=== PATIENT | female | born 1970 | race Hispanic/Latino ===

== ENCOUNTER 2018-08-13 07:44 | Observation (INO) | payer BC ==
[~2018-08-13] VITALS: Ht 157.5 cm; Wt 83.6 kg
[2018-08-13] MEDS ORDERED: LABETALOL HCL 5 MG/ML 20ML VIAL IV STA ×2 (07:59→10:05)
[2018-08-13] MEDS ORDERED: ONDANSETRON HCL INJ 2 MG/ML VIAL IV PRN (09:45)
[2018-08-13] MEDS ORDERED: MORPHINE SULFATE 2 MG/ML SYR IV PRN (09:45)
[2018-08-13] MEDS ORDERED: SODIUM CHLORIDE FLUSH 10 ML SYR INJ PRN (09:45)
[2018-08-13] MEDS ORDERED: HYDRALAZINE HCL 20 MG/ML VIAL IV PRN ×2 (10:00→18:00)
[2018-08-13] MEDS ORDERED: HYDRALAZINE HCL 25 MG TAB PO ONE (10:15)
[2018-08-13] MEDS ORDERED: POTASSIUM CHLORIDE 10MEQ EA PO ONE (13:30)
[2018-08-13 14:11] VITALS: BP 173/80
[2018-08-13 14:12] VITALS: BP 176/87
[2018-08-13 14:46] VITALS: BP 173/80
--- NOTE | 2018-08-13 15:54 | Diagnostic Imaging Report ---
Examination: CT head without contrast Clinical Indication: Unresponsive. Altered mental status. Confusion. Technique: Transaxial noncontrast images from the skull base through the vertex were obtained. Sagittal and coronal reformatted images were done. Dose modulation, iterative reconstruction, and/or weight based adjustment of the mA/kV was utilized to reduce the radiation dose to as low as reasonably achievable. This study was only made available for my viewing and formal interpretation on 08/13/2018 at 1544 hours. Comparison: None. Findings: Scalp: No abnormalities. Bones: Intact. No fractures. No blastic or lytic lesions. Brain sulci: Appropriate for patient's age. Ventricles: Normal in size and configuration. No hydrocephalus. Extra-axial space: No abnormalities. Parenchyma: There is a vague hypodensity in the left frontal periventricular white matter, which is a nonspecific finding and could represent an age-indeterminate infarct, demyelinating disease, or a normal and benign finding like a dilated perivascular space. No masses, hemorrhage, or chronic cortical based vascular insults. Suprasellar region: No abnormalities. Craniocervical junction: The foramen magnum is patent. No Chiari one malformation. Impression: Hypodensity in left frontal periventricular white matter which is a nonspecific finding, but could represent an age-indeterminate infarct, demyelinating disease, or a normal, benign finding like a dilated perivascular space. Contrast enhanced brain MRI is recommended for further evaluation. Dr. Cecilia Liegh discussed findings and recommendations with Nurse Becerra on 08/13/2018 at 1551 hours. Signed by: Dr. Cecilia Leigh M.D. on 08/13/2018 3:51 PM
[2018-08-13] MEDS ORDERED: DIOVAN160 MG PO (16:07)
[2018-08-13] MEDS ORDERED: GADOBENATE DIMEGLUMINE 1 ML IV ONE (16:32)
[2018-08-13] MEDS ORDERED: ENOXAPARIN SOD INJ 40 MG/0.4 ML SYR SC SCH (17:00)
[2018-08-13 17:03] VITALS: BP 172/79
--- NOTE | 2018-08-13 17:04 | Diagnostic Imaging Report ---
EXAMINATION: PA and lateral views of the chest. COMPARISON: None CLINICAL HISTORY: Hypertensive crisis DISCUSSION: Lines/tubes: None. Lungs: The lungs are well inflated and clear. No pneumonia or pulmonary edema. Pleura: No pleural effusion or pneumothorax. Heart and mediastinum: The cardiomediastinal silhouette is normal. Bones and soft tissues: No acute bony abnormalities. IMPRESSION: No acute cardiopulmonary abnormalities. Signed by: Dr. Mak Singh M.D. on 08/13/2018 5:00 PM
--- NOTE | 2018-08-13 18:17 | Diagnostic Imaging Report ---
Examination: MRI BRAIN WITHOUT AND WITH CONTRAST History: Unresponsive. Altered mental status. Confusion. Comparison studies: None Technique: Pre-contrast: Sagittal T2; axial T1, GRE or SWI, DWI, T2 FLAIR Post-contrast: axial, sagittal and coronal T1. Intravenous contrast: 15 mL Multihance Findings: Scalp: No abnormal signal. No masses. Bone marrow: Normal in signal intensity. Brain volume: Adequate for age. No volume loss. Ventricles: Normal in size and configuration. No hydrocephalus. Parenchyma: A few punctate areas (approximately 4) of signal abnormality in the left frontal periventricular white matter without associated restricted diffusion or abnormal enhancement. These changes could be the result of chronic microvascular ischemic change or migraines. No masses, hemorrhage, acute or chronic vascular insults. Extra-axial spaces: No lesion, fluid collection or hematoma. Enhancement: No abnormal enhancement. Suprasellar and sellar region: No abnormalities. Craniocervical junction: No abnormalities. The foramen magnum is patent. No Chiari malformations. Vessels: Normal flow-voids in the arteries and sinuses. Additional findings:None. IMPRESSION: 1. No acute abnormalities. 2. Findings as described above could be related to chronic microvascular ischemic change or migraines. These areas are less likely to reflect demyelinating disease or vasculitis. Signed by: Dr. Cecilia Leigh M.D. on 08/13/2018 6:14 PM
[2018-08-13 20:00] VITALS: BP 172/84
[2018-08-13 20:44] VITALS: BP 172/84
[2018-08-13] MEDS: SIMVASTATIN 40 MG TAB PO SCH (20:44)
[2018-08-14] VITALS (8 sets, daily range): BP systolic 137–181; BP diastolic 72–86
[2018-08-14 05:21] LABS: BASOPHILS # (AUTO) 0.1 (0.0-0.1); BASOPHILS % 0.6 % (0.0-1.0); EOSINOPHILS # (AUTO) 0.1 (0.0-0.4); EOSINOPHILS % 0.6 % (0.0-6.0); HEMATOCRIT 34.8 % (34.2-44.1); HEMOGLOBIN 10.3 g/dL (12.0-16.0); LYMPHOCYTES # (AUTO) 2.8 (1.0-3.2); LYMPHOCYTES % 27.1 % (18.0-39.1); MEAN CORPUSCULAR HEMOGLOBIN 21.7 pg (28-32); MEAN CORPUSCULAR HGB CONC 29.6 g/dL (31-35); MEAN CORPUSCULAR VOLUME 73.4 fL (81-99); MONOCYTES # (AUTO) 0.7 (0.2-0.8); MONOCYTES % 6.8 % (4.4-11.3); NEUTROPHILS # (AUTO) 6.6 (2.1-6.9); NEUTROPHILS % 64.6 % (38.7-80.0); PLATELET COUNT 308 x10e3/uL (140-360); RED BLOOD COUNT 4.74 x10e6/uL (3.6-5.1); RED CELL DISTRIBUTION WIDTH 17.2 % (11.7-14.4)
[2018-08-14 05:57] LABS: ANION GAP 14.4 mmol/L (8-16); BLOOD UREA NITROGEN 11 mg/dL (7-26); BUN/CREATININE RATIO 16 (6-25); CALCIUM 9.6 mg/dL (8.4-10.2); CARBON DIOXIDE 26 mmol/L (22-29); CHLORIDE 103 mmol/L (98-107); CHOL/HDL RATIO 3.9 (3.0-3.6); CHOLESTEROL 155 MD/DL (0-199); CREATININE, SERUM 0.67 mg/dL (0.57-1.11); EST GLOMERULAR FILTRATION RATE > 60 ML/MIN (60-); GLUCOSE 124 mg/dL (74-118); HDL CHOLESTEROL 40 MG/DL (40-60); POTASSIUM 3.4 mmol/L (3.5-5.1); SODIUM 140 mmol/L (136-145)
[2018-08-14 06:22] LABS: FREE T4 (FREE THYROXINE) 1.13 ng/dL (0.9-1.8); THYROID STIMULATING HORMONE 0.727 uIU/mL (0.350-4.940)
[2018-08-14 06:48] LABS: LDL CHOLESTEROL 96 MG/DL (60-130); TRIGLYCERIDES 95 MG/DL (0-149)
--- NOTE | 2018-08-14 08:00 | Consultation ---
DATE OF CONSULTATION: August 13, 2018 CARDIOLOGY CONSULTATION REQUESTING PHYSICIAN: Dr. Yanick Malhotra. REASON FOR CONSULTATION: Hypertensive urgency. HISTORY OF PRESENT ILLNESS: This is a 48-year-old woman with history of hypertension who was brought into the ER by family due to altered mental status. The family indicates the patient again complaining of a headache yesterday morning. She then began to be less responsive through yesterday. This morning when they evaluated her she was less interactive, thus they brought her to the ER for further evaluation. She did not complain of any chest pain, shortness of breath, edema or orthopnea. However, the patient did endorse palpitations while she was at the outside ER. On presentation, she was found to be hypertensive to 244/113. The patient was, therefore, admitted for further evaluation and management. REVIEW OF SYSTEMS: Negative except as per HPI. PAST MEDICAL HISTORY: Hypertension. PAST SURGICAL HISTORY: None. ALLERGIES: NO KNOWN DRUG ALLERGIES. MEDICATIONS: Please see medication list. SOCIAL HISTORY: Denies tobacco, alcohol or illicit drugs. FAMILY HISTORY: Significant for parents with hypertension. PHYSICAL EXAMINATION VITAL SIGNS: Temperature 99.8 degrees, pulse 112, respiratory rate 16, blood pressure 173/80, oxygen saturation 98% on room air. GENERAL: An obese woman in no acute distress, well developed and well nourished. HEENT: Normocephalic, atraumatic. Pupils are equal. No scleral icterus. NECK: Supple. No thyromegaly or cervical lymphadenopathy. No carotid bruits. LUNGS: Clear to auscultation bilaterally. No wheezes or crackles. CARDIOVASCULAR: Normal rate, regular rhythm. A 2/6 systolic murmur. Normal S1 and S2. ABDOMEN: Soft and nontender. EXTREMITIES: No edema. NEUROLOGIC: Alert and oriented x3. Nonfocal exam. EKG: Normal sinus rhythm, cannot rule out anterior infarct, age undetermined. IMPRESSION 1. Hypertensive urgency. 2. Altered mental status. RECOMMENDATIONS: Obtain echocardiogram. Based on family report, the patient was likely on Valsartan as an outpatient. We will resume gradual blood pressure lowering given significant elevation. Target 25% blood pressure lowering from initial presentation. Given the patient's altered mental status, there is concern this could be hypertensive encephalopathy, although the patient is currently alert and oriented, responding appropriately to questions. Further titration of antihypertensive therapy in the a.m. Thank you for this consult. Will continue to follow. Job#: [id number] DANIA
--- NOTE | 2018-08-14 08:26 | History and Physical ---
CHIEF COMPLAINT 1. Confusion. 2. Depression. 3. Uncontrolled hypertension. No chest pain. HISTORY OF PRESENT ILLNESS: This is a 48-year-old female with past medical history of hypertension, no diabetes and no coronary artery disease, who was in her usual state of health until family noticed patient was confused. A CT of head in the ER shows no acute stroke. Blood pressure was 180/114 in the ER. Patient was given IV medicine. Blood pressure is stable now. She is more talkative now. No focal weakness, no chest pain. No abdominal pain, no nausea, no vomiting, no backache, no hematuria, no dysuria, no hematemesis. PAST MEDICAL HISTORY: Hypertension and depression. PAST SURGICAL HISTORY: None. SOCIAL HISTORY: Patient is , lives with her and son in [place]. HABITS: Denies smoking, denies alcohol use, denies illicit drug use. MEDICATION: Possible losartan 50 or 100 mg daily. Unable to get a complete dose. REVIEW OF SYSTEMS CONSTITUTIONAL: Generalized fatigue and weakness. HEENT: No diplopia, no blurring of vision. CARDIOPULMONARY: No chest pain, no shortness of breath, no cough. ALIMENTARY: No nausea, no vomiting. MUSCULOSKELETAL: No joint pains. CENTRAL NERVOUS SYSTEM: Has confusion. Has some headache. No focal weakness, no seizure. PHYSICAL EXAMINATION GENERAL: A 48-year-old female who is alert, confused but better, depressed. VITAL SIGNS: Temperature 98.2, pulse 90, respiratory rate 18, last blood pressure of 160/90. HEENT: Head is atraumatic and normocephalic. Pupils bilaterally equally reactive to light. Extraocular muscles intact. NECK: Supple. No JVD, no carotid bruit. LUNGS: Clear to auscultation and percussion bilaterally. No added sounds. HEART: S1 and S2. Regular rate and rhythm. No S3, no S4 or murmur. ABDOMEN: Soft, nontender. No guarding, no rigidity. EXTREMITIES: No pedal edema. Peripheral pulses +1. CENTRAL NERVOUS SYSTEM: Grossly nonfocal. Her white count 10.9. Potassium 3.5. Otherwise mild anemia. Chest x-ray is pending. CT of head, no acute bleed. EKG, normal sinus rhythm at 80 per minute. ASSESSMENT 1. Hypertensive emergency. 2. Uncontrolled hypertension. 3. Depression. 4. Hypokalemia. PLAN: Cardiology consultation with Dr. Pacheco. Psych consult with Dr. Bocanegra. Chest x-ray. Lab in the morning. KCl 20 mEq p.o. now. Add amlodipine 5 mg daily. Case discussed with patient and son and nursing staff. Condition and prognosis explained. Job#: [id number] EV
[2018-08-14] MEDS ORDERED: POTASSIUM CHLORIDE 10MEQ EA PO NR (08:45)
[2018-08-14] MEDS: ASPIRIN 325 MG TAB EC PO SCH (08:52)
[2018-08-14] MEDS ORDERED: VALSARTAN 160 MG TAB PO SCH (09:00)
[2018-08-14] MEDS ORDERED: AMLODIPINE BESYLATE 5 MG TAB PO SCH (09:00)
[2018-08-14] MEDS: NIFEDIPINE CR 30 MG TAB PO SCH (11:57)
[2018-08-14] MEDS: SERTRALINE HCL 50 MG TAB PO SCH (11:57)
[2018-08-14] MEDS ORDERED: VALSARTAN 160 MG TAB PO ONE (16:15)
--- NOTE | 2018-08-14 16:54 | Progress Note ---
DATE: August 14, 2018 CARDIOLOGY PROGRESS NOTE SUBJECTIVE: Patient denies chest pain or shortness of breath. OBJECTIVE VITAL SIGNS: Temperature 97.8 degrees, pulse 90, respiratory rate 16, blood pressure 181/86, oxygen saturation 100% on room air. GENERAL: Awake, alert, in no acute distress. LUNGS: Clear to auscultation bilaterally. No wheezes or crackles. CARDIOVASCULAR: Normal rate, regular rhythm. A 2/6 systolic murmur. Normal S1 and S2. ABDOMEN: Soft and nontender. EXTREMITIES: No edema. CARDIAC MEDICATIONS 1. Valsartan 160 mg p.o. daily 2. Aspirin 325 mg p.o. q.a.m. 3. Simvastatin 40 mg p.o. each bedtime. LABS: WBC 10.24, hemoglobin 10.3, hematocrit 34.8, platelets 308. Sodium 140, potassium 3.4, chloride 103, CO2 26, BUN 11, creatinine 0.67. TELEMETRY: Normal sinus rhythm. IMPRESSION 1. Hypertensive urgency. 2. Altered mental status. RECOMMENDATIONS: Add nifedipine. Increase valsartan to 320 mg p.o. daily. Continue monitoring the patient on telemetry. Replete electrolytes. Monitor blood pressure response to change in antihypertensive therapy. Thank you for this consult. We will continue to follow. Job#: [id number]
[2018-08-14] MEDS: FERROUS SULFATE 325 MG TAB PO SCH (17:52)
--- NOTE | 2018-08-14 18:09 | Consultation ---
DATE OF CONSULTATION: August 14, 2018 PSYCHIATRIC INITIAL CONSULTATION REASON FOR CONSULTATION: For treatment and evaluation of the patient's mood and anxiety. HISTORY OF PRESENT ILLNESS: The patient is a 48-year-old female who was admitted to the medical floor because of multiple medical problems. Psychiatric consult is called to evaluate the patient's mood and anxiety during her inpatient stay. Upon evaluation today, it was noted that the patient can only speak [place], so this assessment was done with the help of a [place]-speaking strapping machine operator. The patient appears to be very depressed, isolated and withdrawn. She is only answering by nodding her head and also yes and no to most answers. The patient denies feeling depressed or anxious. She denies feeling hopeless and helpless. She claims that she is sleeping and eating well. She denies any hallucinations and/or any suicidal ideation. As per the interpreting staff, the patient appears to be depressed, isolative and guarded during this assessment. PAST PSYCHIATRIC HISTORY: The patient denies any history of psychiatric illness in the past. She has never attempted any suicide. She denies drinking alcohol and denies abusing any recreational drugs. FAMILY HISTORY: The patient denies any family history of psychiatric illness. SOCIAL HISTORY: The patient lives with her family. CURRENT LABS: WBC 10.24, hemoglobin 10.3, hematocrit 34.8, platelets 308. Sodium 140, potassium 3.4, chloride 103, carbon dioxide 26, BUN 11, creatinine 0.67. CURRENT MEDICATIONS 1. Amlodipine. 2. Aspirin. 3. Ferrous sulfate. 4. Simvastatin. MENTAL STATUS EXAMINATION: The patient is a middle-aged female who is currently lying on her bed. She is alert, awake and oriented to situation. She has psychomotor retardation. She is guarded. Her mood is depressed with blunted affect. She denies any suicidal or homicidal ideation at present. She denies any abnormal perception at present. No delusions are elicited. Her thought process is goal directed. Her insight and judgment are fair. DIAGNOSES/AXIS I: Adjustment disorder with mixed mood, depression and anxiety/rule out major depressive disorder. PLAN OF CARE 1. Add Zoloft 50 mg p.o. daily. 2. Supportive therapy. Thank you very much for this consult. Job#: [id number]
--- NOTE | 2018-08-14 20:11 | Consultation ---
DATE OF CONSULTATION: August 14, 2018 NEUROLOGY CONSULTATION HISTORY OF PRESENT ILLNESS: Ms. Camarena is a 48-year-old [id number] woman with past medical history significant for hypertension and mixed depression/anxiety disorder admitted to [facility] on August 13, 2018 with hypertensive emergency and decreased level of responsiveness. Unfortunately, the patient is not cooperative with this examination. The medical history is obtained from the patient's family members who are available at the bedside and from review of the electronic medical records. On the afternoon August 13, 2018 , the patient was brought to the Emergency Center at [facility] via private vehicle for further evaluation of decreased responsiveness. According to documentation from the Emergency Center, the patient was last seen normal at 0500 on 08/13/2018. From that time onward, Ms. Camarena was noted to have a decreased level of responsiveness. More specifically, the patient was not wanting to move and not acting normal. In the Emergency Center, the patient's family did not report weakness, numbness, or recent falls. Ms. Camarena has no restrictions on mobility when in her usual state of health. It is noted in the Emergency Center documentation that the patient has experienced similar symptoms previously. Approximately 1 year ago, Ms. Camarena was hospitalized with decreased responsiveness as described above. After undergoing a thorough evaluation, the patient was diagnosed with depression. Upon arrival in the Emergency Center, the patient was afebrile with a blood pressure to 244/113 mmHg and a pulse of 110 beats per minute. Her neurological examination was significant for a decreased level of alertness. The Emergency Center physician documented the patient pretended to sleep when she was, in fact, awake. No other abnormalities were noted on the patient's neurological examination. Routine laboratory data was more or less unremarkable. A CT of the brain without contrast was performed while the patient was in the Emergency Center. This study revealed a possible hypodensity in the left frontal periventricular white matter. Further evaluation with an MRI of the brain with and without contrast was recommended. Following her admission to the hospital, Ms. Camarena did undergo an MRI of the brain with and without contrast on the evening of August 13, 2018. There were no acute abnormalities noted on the MRI of the brain. There were findings compatible with chronic small vessel ischemic disease. A neurology consultation was requested to explain the findings on the MRI of the brain. REVIEW OF SYSTEMS: Unable to obtain secondary to the patient's lack of cooperation with the examination. PAST MEDICAL HISTORY: Hypertension, depression/anxiety disorder. PAST SURGICAL HISTORY: None. PAST HOSPITALIZATIONS: Childbirth times 4, syncope, depression. FAMILY MEDICAL HISTORY: The patient's daughter reports a strong family history of both hypertension and diabetes mellitus type 2. SOCIAL HISTORY: Ms. Camarena is . 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 Patient's daughter does not report current or prior tobacco, alcohol, or recreational drug use. HOME MEDICATIONS: Please see the list of home medications available on the electronic medical record. ALLERGIES: NO KNOWN DRUG ALLERGIES. NO KNOWN FOOD ALLERGIES. NO KNOWN ALLERGIES TO LATEX. NO KNOWN ALLERGIES TO IODINE OR OTHER CONTRAST MATERIALS. PHYSICAL EXAMINATION VITAL SIGNS: Height 62 inches, weight 182 pounds. BMI 33.4 kg per meter squared. Blood pressure 168/84 mmHg. Pulse 95 beats per minute. Respiratory rate 16 breaths per minute. Oxygen saturation 96% on room air. GENERAL: The patient is awake and alert. Ms. Camarena is tearful throughout the encounter. Obese. HEENT: Normocephalic and atraumatic. Pupils are equal, round and reactive to light. Moist mucous membranes. NECK: Supple. No appreciable thyromegaly. No appreciable carotid bruits. CARDIOVASCULAR: S1 and S2. Regular rate and rhythm. No murmurs, rubs or gallops. RESPIRATORY: Clear to auscultation bilaterally. No wheezes, rhonchi or rales. EXTREMITIES: The skin is warm and dry. No clubbing, cyanosis or edema. The posterior tibial and dorsalis pedis pulses are 2+ and symmetric. SKIN: No rashes or lesions. NEUROLOGIC: Memory/attention: The patient is awake and alert. Ms. Camarena does not answer orientation questions. CRANIAL NERVES: Cranial nerve I: Not tested. Cranial nerves II, III, IV, : Pupils are equal and round, react briskly to light (from 4 mm to 2 mm). Extraocular movements are grossly intact. No nystagmus. Cranial nerve V: Sensation to light touch is intact in the bilateral V1 through V3 distributions. Strength of the temporalis and masseter muscles is within normal limits. Cranial nerve VII: The face is symmetric, as are all facial movements. Strength is within normal limits. Cranial nerve VIII: Hearing is grossly intact to finger rub bilaterally. Cranial nerve IX and X: The soft palate elevates equally and symmetrically. Cranial nerve XI: Unable to assess secondary to lack of patient cooperation. Cranial nerve XII: The tongue protrudes midline and moves symmetrically from side to side. STRENGTH: Bulk is normal. The patient does not cooperate with strength assessment. There are normal functional movements of both arms and both legs without drift. Tone is normal. DTRs: Deep tendon reflexes are 2+ and symmetric at the triceps, biceps, brachioradialis, patellas, and Achilles. Plantar responses are flexor bilaterally. SENSATION: Intact to light touch and pinprick in both arms and both legs. CEREBELLAR: Unable to assess due to lack of the patient's cooperation. GAIT: Deferred. SPEECH: The patient does not speak once during the encounter. INVOLUNTARY MOVEMENTS: None. PRONATOR DRIFT: None. LABORATORY DATA: The patient's basic metabolic panel is significant for potassium level of 3.4 and serum glucose 124. The hemoglobin A1c is 5.5. Total cholesterol 155, triglycerides 95, LDL cholesterol 96, HDL cholesterol 40. TSH 0.727. Free T4 of 1.13. The CBC with differential and platelets reveals a white blood cell count of 10.24 with a normal differential. The hemoglobin and hematocrit are 10.3 and 34.8, respectively. There is evidence of macrocytosis. Platelet count 308,000. DIAGNOSTIC STUDIES: Electrocardiogram 08/13/2018: Normal sinus rhythm at [address] of the brain without contrast number on 08/13/2018: There is a hypodensity in the left frontal periventricular white matter which is a nonspecific finding, but could represent an age indeterminate infarct, demyelinating disease, or normal benign finding like a dilated perivascular space. Contrast enhanced brain MRI is recommended for further evaluation. Chest x-ray 08/13/2018: No acute cardiopulmonary abnormalities. MRI of the brain without contrast on 08/13/2018: On my review, there no evidence of recent large territorial ischemia, hemorrhage, mass, or mass effect. Cerebral volumes are appropriate for age. There are a few scattered nonspecific T2/Flair, hyperintense foci of the supratentorial deep white matter compatible with mild chronic small vessel ischemic disease. Echocardiogram 08/14/2018: Ejection fraction 60% to 65%. Left ventricular hypertrophy. Trace mitral and tricuspid regurgitation and pulmonic insufficiency. ASSESSMENT AND PLAN: Ms. Camarena is a 48-year-old [id number] woman with past medical history significant for hypertension and mixed depression/anxiety disorder admitted to [facility] on August 13, 2018 with hypertensive urgency/emergency and a decreased level of responsiveness. On neurological examination, the patient does not verbalize and is poorly cooperative with the examination. Otherwise, there are no focal deficits present. The patient's laboratory data and other diagnostic studies have been reviewed and are documented above. Regarding the patient's lack of responsiveness and cooperativity, there is a low suspicion for encephalopathy. As stated previously, the patient is tearful throughout the examination. According to the hospital staff and family members, the patient's level of responsiveness and cooperativity has waxed and waned throughout the day. Ms. Camarena is able to follow directions without difficulty when she does cooperate with the neurological examination. Therefore, in my opinion, the lack of responsiveness and poor cooperativity are likely behavioral. I agree with psychiatric consultation for evaluation of an underlying mood disorder as the cause of the above symptoms. As regards to the patient's findings on the MRI of the brain without contrast, diffuse foci of T2/FLAIR hyperintensity represent changes to the brain due to poorly controlled hypertension. Essentially, these changes represent end-organ damage. The few changes observed on the patient's MR images are not and should not cause any deficits. However, the patient's vascular risk factors (i.e. hypertension, hyperlipidemia, diabetes mellitus type 2, coronary artery disease, obstructive sleep apnea, tobacco use, etcetera ) should be well controlled to prevent progression of cerebral ischemia. Control of her vascular risk factors will place the patient at a lower risk for heart attack, stroke, and vascular dementia in the future as well. Thank you for the for this consultation. There are no other recommendations from the neurology service at this time. Time spent: 70 minutes. Job#: [id number] GH EDISON
[2018-08-14] MEDS: SIMVASTATIN 40 MG TAB PO SCH (21:07)
[2018-08-15] VITALS: BP 157/74
[2018-08-15 04:00] VITALS: BP 168/79
[2018-08-15 05:48] LABS: ANION GAP 15.6 mmol/L (8-16); BLOOD UREA NITROGEN 10 mg/dL (7-26); BUN/CREATININE RATIO 16 (6-25); CALCIUM 9.3 mg/dL (8.4-10.2); CARBON DIOXIDE 25 mmol/L (22-29); CHLORIDE 104 mmol/L (98-107); CREATININE, SERUM 0.64 mg/dL (0.57-1.11); EST GLOMERULAR FILTRATION RATE > 60 ML/MIN (60-); GLUCOSE 119 mg/dL (74-118); POTASSIUM 3.6 mmol/L (3.5-5.1); SODIUM 141 mmol/L (136-145)
[2018-08-15 08:29] VITALS: BP 180/86
[2018-08-15] MEDS: FERROUS SULFATE 325 MG TAB PO SCH (08:32)
[2018-08-15] MEDS: NIFEDIPINE CR 30 MG TAB PO SCH (08:32)
[2018-08-15] MEDS: ASPIRIN 325 MG TAB EC PO SCH (08:32)
[2018-08-15] MEDS: SERTRALINE HCL 50 MG TAB PO SCH (08:32)
[2018-08-15] MEDS ORDERED: VALSARTAN 160 MG TAB PO SCH (09:00)
[2018-08-15 09:51] VITALS: BP 180/86
[2018-08-15] MEDS ORDERED: CARVEDILOL 12.5 MG TAB PO SCH (11:30)
[2018-08-15 12:00] VITALS: BP 141/67
--- NOTE | 2018-08-15 12:10 | Progress Note ---
DATE: August 15, 2018 CARDIOLOGY PROGRESS NOTE SUBJECTIVE: Patient denies chest pain or shortness of breath. OBJECTIVE VITAL SIGNS: Temperature 96.5 degrees, pulse 110, respiratory rate 16, blood pressure 180/86, oxygen saturation 99% on room air. GENERAL: Awake, alert, in no acute distress. Flat affect. LUNGS: Clear to auscultation bilaterally. No wheezes or crackles. CARDIOVASCULAR: Normal rate, regular rhythm. A 2/6 systolic murmur. Normal S1 and S2. ABDOMEN: Soft and nontender. EXTREMITIES: No edema. CARDIAC MEDICATIONS 1. Valsartan 320 mg p.o. daily 2. Nifedipine 60 mg p.o. daily. 3. Aspirin 325 mg p.o. q.a.m. 4. Simvastatin 40 mg p.o. each bedtime. LABS: Sodium 141, potassium 3.6, chloride 104, CO2 25, BUN 10, creatinine 0.64. TELEMETRY: Normal sinus rhythm. IMPRESSION 1. Hypertensive urgency. 2. Altered mental status. RECOMMENDATIONS: The patient remains hypertensive despite increase in valsartan and addition of nifedipine. We will add carvedilol 25 mg p.o. b.i.d. Monitor the patient on telemetry while admitted. She is having episodes of sinus tachycardia. Monitor blood pressure and heart rate response to change in antihypertensive therapy. If the blood pressure improves, the patient may be discharged home later today. Thank you for this consult. We will continue to follow. Job#: [id number]
--- NOTE | 2018-08-15 12:34 | Progress Note ---
DATE: August 15, 2018 PSYCHIATRIC PROGRESS NOTE Patient evaluated and events noted. INTERVAL HISTORY: This assessment is done with the help of a botany laboratory assistant. The patient is currently lying on her bed. She is alert, awake and oriented to situation. She stated that she is feeling depressed but could not identify a particular stressor. She is still isolated and withdrawn. She is taking her medication and denies any side effects. She denies any suicidal ideation at this time. She is willing to follow up with outpatient psychiatrist at this time. DIAGNOSIS: Adjustment disorder with mixed mood, depression and anxiety, rule out major depression. PLAN OF CARE 1. Continue Zoloft 50 mg p.o. daily. 2. Supportive therapy. 3. Follow up with outpatient psychiatrist. Job#: [id number]
[2018-08-15 14:06] VITALS: BP 127/58
[2018-08-15] MEDS ORDERED: COREG12.5 MG PO (14:38)
[2018-08-15] MEDS ORDERED: ZOLOFT50 MG PO (14:39)
[2018-08-15] MEDS ORDERED: FERROUS SULFAT325 MG PO (14:40)
[2018-08-15] MEDS ORDERED: ECOTRIN81 MG PO (14:40)
[2018-08-15] MEDS ORDERED: PROCARDIA XL30 MG PO (14:41)
--- NOTE | 2018-10-14 02:53 | Discharge Summary ---
CHIEF COMPLAINT: Hypertensive crisis. FINAL DIAGNOSES: 1. Uncontrolled hypertension, improved. 2. Depression. 3. Hyperlipidemia. DISPOSITION: Home. HOSPITAL COURSE: A 48-year-old female with past medical history of hypertension, baseline state of health until her family noticed that she was confused. She was brought into the ER for evaluation. X-rays and blood work were performed. She was demonstrating a BP of 180/114, began medication intervention and she was admitted to the floor for care regarding findings of hypertensive emergency, uncontrolled hypertension, depression, hypokalemia. With admission, requesting cardiology follow with Dr. Webster; requesting psych review, Dr. Bocanegra; neurology followup as well with Dr. Trotter. With admission, patient underwent neurology followup with Dr. Trotter. Impression was made of poorly controlled hypertension. Recommendations were to control hypertension as well as other vascular risk factors. Agree with psychiatric evaluation. Regarding her hypertensive states, she was being seen by cardiology through Dr. Wallace and following her workup, her impression was hypertensive urgency, altered mental status. States that due to the patient's altered mental status, there is a concern this could be hypertensive encephalopathy although the patient is currently alert, orientated, responding appropriately to questions. Patient was admitted to the med/surg floor. Underwent the trial consultant follows. Chest x-ray was being performed. Patient was also started on potassium replenishment. Also receiving amlodipine 5 mg daily for further BP support. She was having no further chest pains, no headaches, no dizziness. Also receiving Lovenox 40 mg daily, aspirin 325 daily. Daily medications were continuing. Her chest x-rays were returning uneventful. 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 BP had improved to 168/79 on 08/15. Labs were stable. She was showing hemoglobin of 10.3. She will be started on Zoloft, Diovan, Procardia, aspirin and ferrous sulfate. Cleared for discharge. Will be monitored further on outpatient basis. Was released home on 08/15/2018 in stable condition. Her EKGs are showing normal sinus rhythm with voltage criteria for left ventricular hypertrophy. Echocardiogram 60% to 65% ejection fraction. No evidence of pericardial effusion. With discharge, she will continue on a cardiac diet. No equipment or supplies were necessary. No drain or Yepez was needed. Activity level as directed by myself, by cardiology, by psychiatry. She was instructed to monitor her blood pressure daily, keep a log book of her BPs. Instructed to call her insurance company and get a list of [place] speaking psychiatrists in the are to assist in her psych care. Request was made to follow up with Dr. Bocanegra in his office in 3 weeks, Dr. Wallace in 1 week. She has no documented PCP on her demographic sheet. Request was made for her to see me in my office within 1 to 2 weeks. She was given prescription for Coreg 25 mg 1 tablet p.o. b.i.d., ferrous sulfate 325 one tablet b.i.d. with food, Diovan 320 p.o. daily, Procardia XL 60 mg p.o. daily, Zoloft 50 mg 1 tablet daily, Ecotrin 81 mg 1 tablet with food daily. If she develops any further difficulties, please report back to the emergency room. Dictated by: ESHA Huizar. MAXIMINO ABURTO MD Job#: [id number] DONNA
== END 2018-08-15 15:11 | disposition home or self-care (01) ==
LOC: FSED 07:44 → INTOOBSV 09:42 → ERHOLD 09:42 → MED/SURG 12:09
PROVIDERS: ADMIT Internal Medicine; ATTEND Internal Medicine
DX: I16.1 Hypertensive emergency (principal); E87.6 Hypokalemia; I10 Essential (primary) hypertension; F32.9 Major depressive disorder, single episode, unspecified; Z82.49 Family history of ischemic heart disease and other diseases of the circulatory system; R41.82 Altered mental status, unspecified; F43.23 Adjustment disorder with mixed anxiety and depressed mood
CPT/HCPCS: 36415 ×2; 70450; 70553; 71046; 80048 ×2; 80053; 80061; 83036; 84439; 84443; 84484; 85025 ×2; 93005; 93306; 99284; G0378 ×3; J0360; J1650; J2270; J2405; J3490